=== PATIENT | male | born 1995 ===

== ENCOUNTER 2017-12-07 17:50 | Emergency (ER) | payer MEDICAID, OTHER ==
[~2017-12-07] VITALS: Ht 175.3 cm; Wt 95.0 kg
[2017-12-07 18:02] VITALS: BP 140/76; PULSE 132; RESP 17; TEMP 99.8; O2SAT 96
[2017-12-07] MEDS ORDERED: SODIUM CHLOR 0.9% 1000 ML INJ 1,000 ML IV SCH (19:19)
[2017-12-07] MEDS ORDERED: SODIUM CHLORIDE 0.9% FLUSH 10 ML FLUSH IV FLUSH PRN (19:30)
[2017-12-07] MEDS ORDERED: ONDANSETRON HCL 4 MG/2 ML VIAL IVP ONE (19:30)
--- NOTE | 2017-12-07 19:53 | PD ---
HPI Chief Complaint: GI Complaint Time Seen by Provider: 19:19 Travel History International Travel<30 days: No Contact w/Intl Traveler<30days: No Traveled to known affect area: No History of Present Illness HPI Patient is a 22-year-old male presenting to emerge from for evaluation of nausea , vomiting, diarrhea for the last 2 days. Patient reports yellow-green emesis. He reports that he has been unable to tolerate food. He has not vomited in several hours and feels that this has improved. He reports 8-10 episodes of loose, watery diarrhea daily, he has not had any bowel movement in several hours. He denies any bloody stools or mucus in his stools. He denies any bloody emesis. He further denies any fevers but reports feeling chilled and fatigued. He denies any contaminated foods but he reports that his son has been sick recently. Symptom onset was fairly sudden, symptoms are moderate in nature. There are no alleviating factors, symptoms are exacerbated with oral intake. PFSH Past Medical History Asthma: Yes Immunizations Current: Yes Tetanus Vaccination: > 5 Years Influenza Vaccination: Yes Past Surgical History Surgical History: No Previous Surgery Social History Alcohol Use: No Tobacco Use: No Substance Use: No Allergies-Medications (Allergen,Severity, Reaction): Coded Allergies: No Known Allergies (Unverified , 12/07/17) Reported Meds & Prescriptions Reported Meds & Active Scripts Active Zofran Odt (Ondansetron Odt) 4 Mg Tab 4 Mg SL Q6HR PRN Review of Systems Except as stated in HPI: all other systems reviewed are Neg General / Constitutional: Positive: Chills HENT: No: Headaches Cardiovascular: No: Chest Pain or Discomfort Respiratory: No: Shortness of Breath Gastrointestinal: Positive: Nausea, Vomiting, Diarrhea, Loss of Appetite, No: Abdominal Pain, Changes in Bowel Habits Genitourinary: No: Dysuria Musculoskeletal: No: Myalgias Neurologic: No: Weakness, Dizziness, Syncope Physical Exam Narrative GENERAL: Well-developed, well-nourished, alert male. Presenting in no acute distress. SKIN: Warm and dry. HEAD: Atraumatic. Normocephalic. EYES: Pupils equal and round. No scleral icterus. No injection or drainage. ENT: No nasal bleeding or discharge. Mucous membranes pink and moist. NECK: Trachea midline. No JVD. CARDIOVASCULAR: Tachycardic RESPIRATORY: No accessory muscle use. Clear to auscultation. Breath sounds equal bilaterally. GASTROINTESTINAL: Abdomen soft, non-tender, nondistended. Hepatic and splenic margins not palpable. No rebound, no guarding, positive bowel sounds. MUSCULOSKELETAL: Extremities without clubbing, cyanosis, or edema. No obvious deformities. NEUROLOGICAL: Awake and alert. No obvious cranial nerve deficits. Motor grossly within normal limits. Five out of 5 muscle strength in the arms and legs. Normal speech. PSYCHIATRIC: Appropriate mood and affect; insight and judgment normal. Data Data Last Documented VS Vital Signs Date Time Temp Pulse Resp B/P (MAP) Pulse Ox O2 Delivery O2 Flow Rate FiO2 12/07/17 18:02 99.8 132 17 140/76 (97) 96 Orders Orders Complete Blood Count With Diff (12/07/17 19:19) Comprehensive Metabolic Panel (12/07/17 19:19) Lipase (12/07/17 19:19) Urinalysis - C+S If Indicated (12/07/17 19:19) Iv Access Insert/Monitor (12/07/17 19:19) Ecg Monitoring (12/07/17 19:19) Oximetry (12/07/17 19:19) Ondansetron Inj (Zofran Inj) (12/07/17 19:30) Sodium Chlor 0.9% 1000 Ml Inj (Ns 1000 M (12/07/17 19:19) Sodium Chloride 0.9% Flush (Ns Flush) (12/07/17 19:30) Sodium Chlor 0.9% 1000 Ml Inj (Ns 1000 M (12/07/17 20:30) Labs Laboratory Tests Test 12/07/17 19:54 12/07/17 20:09 White Blood Count 9.0 TH/MM3 Red Blood Count 5.31 MIL/MM3 Hemoglobin 14.5 GM/DL Hematocrit 42.4 % Mean Corpuscular Volume 80.0 FL Mean Corpuscular Hemoglobin 27.2 PG Mean Corpuscular Hemoglobin Concent 34.1 % Red Cell Distribution Width 14.5 % Platelet Count 245 TH/MM3 Mean Platelet Volume 8.2 FL Neutrophils (%) (Auto) 83.9 % Lymphocytes (%) (Auto) 10.3 % Monocytes (%) (Auto) 5.7 % Eosinophils (%) (Auto) 0.0 % Basophils (%) (Auto) 0.1 % Neutrophils # (Auto) 7.6 TH/MM3 Lymphocytes # (Auto) 0.9 TH/MM3 Monocytes # (Auto) 0.5 TH/MM3 Eosinophils # (Auto) 0.0 TH/MM3 Basophils # (Auto) 0.0 TH/MM3 CBC Comment DIFF FINAL Differential Comment Blood Urea Nitrogen 15 MG/DL Creatinine 1.16 MG/DL Random Glucose 93 MG/DL Total Protein 8.4 GM/DL Albumin 4.3 GM/DL Calcium Level 9.0 MG/DL Alkaline Phosphatase 81 U/L Aspartate Amino Transf (AST/SGOT) 19 U/L Alanine Aminotransferase (ALT/SGPT) 30 U/L Total Bilirubin 0.8 MG/DL Sodium Level 140 MEQ/L Potassium Level 3.6 MEQ/L Chloride Level 103 MEQ/L Carbon Dioxide Level 28.4 MEQ/L Anion Gap 9 MEQ/L Estimat Glomerular Filtration Rate 79 ML/MIN Lipase 85 U/L Urine Color YELLOW Urine Turbidity CLEAR Urine pH 6.5 Urine Specific [place] 1.031 Urine Protein 30 mg/dL Urine Glucose (UA) NEG mg/dL Urine Ketones NEG mg/dL Urine Occult Blood NEG Urine Nitrite NEG Urine Bilirubin NEG Urine Urobilinogen 2.0 MG/DL Urine Leukocyte Esterase NEG Urine RBC 1 /hpf Urine WBC 1 /hpf Urine Squamous Epithelial Cells 1 /hpf Urine Mucus FEW /lpf Microscopic Urinalysis Comment CULT NOT INDICATED MDM Medical Decision Making Medical Screen Exam Complete: Yes Emergency Medical Condition: Yes Interpretation(s) Laboratory Tests Test 12/07/17 19:54 12/07/17 20:09 White Blood Count 9.0 TH/MM3 Red Blood Count 5.31 MIL/MM3 Hemoglobin 14.5 GM/DL Hematocrit 42.4 % Mean Corpuscular Volume 80.0 FL Mean Corpuscular Hemoglobin 27.2 PG Mean Corpuscular Hemoglobin Concent 34.1 % Red Cell Distribution Width 14.5 % Platelet Count 245 TH/MM3 Mean Platelet Volume 8.2 FL Neutrophils (%) (Auto) 83.9 % Lymphocytes (%) (Auto) 10.3 % Monocytes (%) (Auto) 5.7 % Eosinophils (%) (Auto) 0.0 % Basophils (%) (Auto) 0.1 % Neutrophils # (Auto) 7.6 TH/MM3 Lymphocytes # (Auto) 0.9 TH/MM3 Monocytes # (Auto) 0.5 TH/MM3 Eosinophils # (Auto) 0.0 TH/MM3 Basophils # (Auto) 0.0 TH/MM3 CBC Comment DIFF FINAL Differential Comment Blood Urea Nitrogen 15 MG/DL Creatinine 1.16 MG/DL Random Glucose 93 MG/DL Total Protein 8.4 GM/DL Albumin 4.3 GM/DL Calcium Level 9.0 MG/DL Alkaline Phosphatase 81 U/L Aspartate Amino Transf (AST/SGOT) 19 U/L Alanine Aminotransferase (ALT/SGPT) 30 U/L Total Bilirubin 0.8 MG/DL Sodium Level 140 MEQ/L Potassium Level 3.6 MEQ/L Chloride Level 103 MEQ/L Carbon Dioxide Level 28.4 MEQ/L Anion Gap 9 MEQ/L Estimat Glomerular Filtration Rate 79 ML/MIN Lipase 85 U/L Urine Color YELLOW Urine Turbidity CLEAR Urine pH 6.5 Urine Specific [place] 1.031 Urine Protein 30 mg/dL Urine Glucose (UA) NEG mg/dL Urine Ketones NEG mg/dL Urine Occult Blood NEG Urine Nitrite NEG Urine Bilirubin NEG Urine Urobilinogen 2.0 MG/DL Urine Leukocyte Esterase NEG Urine RBC 1 /hpf Urine WBC 1 /hpf Urine Squamous Epithelial Cells 1 /hpf Urine Mucus FEW /lpf Microscopic Urinalysis Comment CULT NOT INDICATED Vital Signs Date Time Temp Pulse Resp B/P (MAP) Pulse Ox O2 Delivery O2 Flow Rate FiO2 12/07/17 18:02 99.8 132 17 140/76 (97) 96 Differential Diagnosis Gastroenteritis versus pancreatitis versus cholecystitis versus metabolic abnormality versus obstruction versus other Narrative Course Patient is well-appearing 22-year-old male presenting to emerge from for evaluation of nausea, vomiting, diarrhea for the last 48 hours. Patient's symptoms appear to be resolving as he has not had any vomiting or diarrhea and several hours. He is tachycardic on arrival, likely secondary to dehydration. Labs ordered and pending. Abdominal exam is benign. Patient has a bag full of [employer] food in the room, he states he asked his to get him something to eat to see if he could eat. Patient was advised to avoid [employer] at this time. Labs reviewed, no acute findings identified. Patient has received a total of 2 L of IV fluids, heart rate reassessed, is currently 100. Patient reports feeling better. Oral fluid challenge ordered. Patient is tolerating oral fluids. He was advised to maintain a bland, easy to digest diet, increasing as tolerated. He was encouraged to follow-up with his primary doctor or return to emergency department for any new or worsening symptoms. Patient verbalized understanding of instructions. Patient stable for discharge. Diagnosis Primary Impression: Gastroenteritis Referrals: [facility] Primary Care Physician Patient Instructions: Acute Nausea and Vomiting (DC), Gastroenteritis (ED), General Instructions Additional Instructions: Follow-up with your primary doctor or at the [facility] clinic Maintain a bland, easy to digest diet, increasing as tolerated Avoid spicy, fried, fatty foods, acidic foods Take medications as needed as directed for nausea Return to emergency department immediately for any new or worsening symptoms Med/Other Pt SpecificInfo: Prescription(s) given Scripts Ondansetron Odt (Zofran Odt) 4 Mg Tab 4 MG SL Q6HR Y for Nausea/Vomiting, #10 TAB 0 Refills Prov: Donya Velazquez 12/07/17 Disposition: 01 DISCHARGE HOME Condition: Stable Donya Velazquez December 07, 2017 19:53
[2017-12-07 20:17] LABS: AUTOMATED NEUTROPHIL # 7.6 TH/MM3 (1.8-7.7); BASOPHIL % 0.1 % (0.0-2.0); HEMATOCRIT 42.4 % (39.0-51.0); HEMOGLOBIN 14.5 GM/DL (13.0-17.0); LYMPH % 10.3 % (9.0-44.0); LYMPHOCYTE # 0.9 TH/MM3 (1.0-4.8); MEAN CORPUSCULAR HEMOGLOBIN 27.2 PG (27.0-34.0); MEAN CORPUSCULAR HGB CONC 34.1 % (32.0-36.0); MEAN PLATELET VOLUME 8.2 FL (7.0-11.0); MONO % 5.7 % (0.0-8.0); MONOCYTE # 0.5 TH/MM3 (0-0.9); NEUT % 83.9 % (16.0-70.0); PLATELET COUNT 245 TH/MM3 (150-450); RED BLOOD COUNT 5.31 MIL/MM3 (4.50-5.90); RED CELL DISTRIBUTION WIDTH 14.5 % (11.6-17.2)
[2017-12-07 20:25] LABS: BILIRUBIN, URINE NEG (NEG); BLOOD, URINE NEG (NEG); GLUCOSE,URINE NEG (NEG); KETONE, URINE NEG (NEG); MUCUS URINE FEW /lpf (OCC); NITRITE,URINE NEG (NEG); PH, URINE 6.5 (5.0-8.5); SQUAMOUS EPITHELIAL CELL URINE 1 /hpf (0-5); URINE COLOR YELLOW (YELLW/STRAW); URINE LEUKOCYTE ESTERASE NEG (NEG)
[2017-12-07] MEDS ORDERED: SODIUM CHLOR 0.9% 1000 ML INJ 1,000 ML IV ONE (20:30)
[2017-12-07 20:35] LABS: ALBUMIN 4.3 GM/DL (3.4-5.0); ALT (GPT) 30 U/L (12-78); AST (GOT) 19 U/L (15-37); BICARBONATE 28.4 MEQ/L (21.0-32.0); BLOOD UREA NITROGEN 15 MG/DL (7-18); CHLORIDE 103 MEQ/L (98-107); CREATININE 1.16 MG/DL (0.60-1.30); GLOMERULAR FILTRATION RATE 79 ML/MIN (>89); GLUCOSE,RANDOM 93 MG/DL (74-106); SODIUM (NA) 140 MEQ/L (136-145)
[2017-12-07 20:38] LABS: ALKALINE PHOSPHATASE 81 U/L (45-117); TOTAL BILIRUBIN ADULT 0.8 MG/DL (0.2-1.0); TOTAL PROTEIN 8.4 GM/DL (6.4-8.2)
[2017-12-07] MEDS ORDERED: ZOFR4TAB3 SL (20:56)
== END 2017-12-07 21:44 | disposition home or self-care (01) ==
LOC: NEPD 17:50
DX: K52.9 Noninfective gastroenteritis and colitis, unspecified (principal); R19.7 Diarrhea, unspecified; J45.909 Unspecified asthma, uncomplicated
CPT/HCPCS: 80053; 81001; 83690; 85025; 96361; 96374; 99284; J2405; J7030

== ENCOUNTER 2017-12-31 13:14 | Emergency (ER) | payer MEDICAID ==
[~2017-12-31] VITALS: Ht 175.3 cm; Wt 95.5 kg
[~2017-12-31 13:14] MED LIST: ZOFR4TAB3 SL
[2017-12-31 13:34] VITALS: BP 149/103; PULSE 78; RESP 16; TEMP 98.7; O2SAT 99
--- NOTE | 2017-12-31 14:19 | RADRPT ---
EXAM DATE: 12/31/2017 2:04 PM EDT AGE/SEX: 22 years / Male INDICATIONS: LT sided chest pain. CLINICAL DATA: This is the patient's initial encounter. Patient reports that signs and symptoms have been present for 1 day and indicates a pain score of 3/10. MEDICAL/SURGICAL HISTORY: Asthma. None. COMPARISON: No prior [facility] exams available for comparison. FINDINGS: PA and lateral views of the chest demonstrate the lungs to be symmetrically aerated without evidence of mass, infiltrate or effusion. The cardiomediastinal contours are unremarkable. Osseous structures are intact. CONCLUSION: No acute cardiopulmonary disease. Electronically signed by: Tenzin Muñoz MD 12/31/2017 2:17 PM EDT
--- NOTE | 2017-12-31 16:08 | PD ---
HPI Chief Complaint: Chest Pain Time Seen by Provider: 15:51 Travel History International Travel<30 days: No Contact w/Intl Traveler<30days: No Traveled to known affect area: No History of Present Illness HPI 22-year-old male with no significant past medical history, presents today with complaints of chest pain. Patient states he has had an on and off several times. He reports it as like being punched in the chest with a fist. He states it radiates to his stomach. There is no associated shortness of breath. There is no associated nausea. There is no associated diaphoresis. Patient states that he was seen about a year ago for similar things and told everything was okay. He reports that at that time he had elevated blood pressure and was told to follow it. Patient does report going through a lot of stress at work. There are no other complaints at the time of my examination. PFSH Past Medical History Asthma: Yes Immunizations Current: Yes Social History Alcohol Use: No Tobacco Use: No Substance Use: No Allergies-Medications (Allergen,Severity, Reaction): Coded Allergies: No Known Allergies (Unverified , 12/31/17) Reported Meds & Prescriptions Reported Meds & Active Scripts Active Vistaril (Hydroxyzine Pamoate) 25 Mg Cap 25 Mg PO TID PRN Zofran Odt (Ondansetron Odt) 4 Mg Tab 4 Mg SL Q6HR PRN Review of Systems Except as stated in HPI: all other systems reviewed are Neg HENT: No: Headaches, Neck Pain Cardiovascular: Positive: Chest Pain or Discomfort, Palpitations, No: Irregular Rhythm (Occasional) Respiratory: No: Cough, Shortness of Breath Gastrointestinal: No: Nausea, Vomiting, Abdominal Pain Musculoskeletal: No: Myalgias, Pain Neurologic: No: Weakness, Dizziness, Headache Psychiatric: No: Anxiety Physical Exam Narrative GENERAL: Well-developed well-nourished male in no acute respiratory distress SKIN: Focused skin assessment warm/dry. HEAD: Atraumatic. Normocephalic. EYES: Pupils equal and round. No scleral icterus. No injection or drainage. ENT: No nasal bleeding or discharge. Mucous membranes pink and moist. NECK: Trachea midline. Supple. CARDIOVASCULAR: Regular rate and rhythm. No murmur appreciated. RESPIRATORY: No accessory muscle use. Clear to auscultation. Breath sounds equal bilaterally. GASTROINTESTINAL: Abdomen soft, non-tender, nondistended. Hepatic and splenic margins not palpable. MUSCULOSKELETAL: No obvious deformities. No clubbing. No cyanosis. No edema. NEUROLOGICAL: Awake and alert. No obvious cranial nerve deficits. Motor grossly within normal limits. Normal speech. PSYCHIATRIC: Appropriate mood and affect; insight and judgment normal. Data Data Last Documented VS Vital Signs Date Time Temp Pulse Resp B/P (MAP) Pulse Ox O2 Delivery O2 Flow Rate FiO2 12/31/17 16:27 97.8 100 16 126/74 (91) 99 12/31/17 16:27 Room Air Orders Orders Electrocardiogram (12/31/17 13:37) Complete Blood Count With Diff (12/31/17 13:37) Ckmb (Isoenzyme) Profile (12/31/17 13:37) Troponin I (12/31/17 13:37) Iv Access Insert/Monitor (12/31/17 13:37) Ecg Monitoring (12/31/17 13:37) Oxygen Administration (12/31/17 13:37) Oximetry (12/31/17 13:37) Prothrombin Time / Inr (Pt) (12/31/17 13:37) Comprehensive Metabolic Panel (12/31/17 13:37) Chest, Pa & Lat (12/31/17 13:37) CKMB (12/31/17 16:25) CKMB% (12/31/17 16:25) Labs Laboratory Tests Test 12/31/17 16:25 White Blood Count 9.6 TH/MM3 Red Blood Count 5.01 MIL/MM3 Hemoglobin 13.4 GM/DL Hematocrit 40.3 % Mean Corpuscular Volume 80.5 FL Mean Corpuscular Hemoglobin 26.8 PG Mean Corpuscular Hemoglobin Concent 33.3 % Red Cell Distribution Width 14.2 % Platelet Count 248 TH/MM3 Mean Platelet Volume 8.2 FL Neutrophils (%) (Auto) 70.3 % Lymphocytes (%) (Auto) 21.4 % Monocytes (%) (Auto) 3.9 % Eosinophils (%) (Auto) 4.2 % Basophils (%) (Auto) 0.2 % Neutrophils # (Auto) 6.8 TH/MM3 Lymphocytes # (Auto) 2.1 TH/MM3 Monocytes # (Auto) 0.4 TH/MM3 Eosinophils # (Auto) 0.4 TH/MM3 Basophils # (Auto) 0.0 TH/MM3 CBC Comment DIFF FINAL Differential Comment Prothrombin Time 10.6 SEC Prothromb Time International Ratio 1.0 RATIO Blood Urea Nitrogen 14 MG/DL Creatinine 1.10 MG/DL Random Glucose 117 MG/DL Total Protein 8.2 GM/DL Albumin 4.2 GM/DL Calcium Level 9.1 MG/DL Alkaline Phosphatase 83 U/L Aspartate Amino Transf (AST/SGOT) 21 U/L Alanine Aminotransferase (ALT/SGPT) 37 U/L Total Bilirubin 0.5 MG/DL Sodium Level 139 MEQ/L Potassium Level 3.8 MEQ/L Chloride Level 102 MEQ/L Carbon Dioxide Level 27.3 MEQ/L Anion Gap 10 MEQ/L Estimat Glomerular Filtration Rate 84 ML/MIN Total Creatine Kinase 171 U/L Creatine Kinase MB 0.6 NG/ML Troponin I LESS THAN 0.02 NG/ML MDM Medical Decision Making Medical Screen Exam Complete: Yes Emergency Medical Condition: Yes Differential Diagnosis Stress-induced anxiety, GERD, ACS, muscular skeletal pain Narrative Course 22-year-old male presents today with complaints of chest pain. Patient reports it as a sensation of being punched in the chest with radiation down to his abdominal area. The patient denies any shortness of breath, nausea, diaphoresis. Patient's EKG and cardiac enzymes are within normal limits. Patient does give history that he is going through a lot of stress at work. He also has 3 young children in the house. He has a very supportive . I informed him that I believe a lot of his symptoms are secondary to his stress and anxiety. I have recommended that he go for long walks with his family. He will be given a prescription for Vistaril told to take 2-3 times daily as needed for stress/anxiety. He is instructed to follow-up with [facility] if the symptoms continue. Diagnosis Primary Impression: Atypical chest pain Additional Impression: Acute life stressors Referrals: [facility] (Out patient) Additional Instructions: Try and exercise daily. Avoid stressful situations. If symptoms persist follow -up with outpatient [facility] Med/Other Pt SpecificInfo: Prescription(s) given Scripts Hydroxyzine Pamoate (Vistaril) 25 Mg Cap 25 MG PO TID Y for ANXIETY, #30 CAP 0 Refills Prov: Darwin Hernandez MD 12/31/17 Disposition: 01 DISCHARGE HOME Condition: Stable Darwin Hernandez MD December 31, 2017 16:08
[2017-12-31 16:25] VITALS: RESP 16; O2SAT 96
[2017-12-31 16:27] VITALS: BP 126/74; PULSE 100; PULSE 102; RESP 16; TEMP 97.8; O2SAT 99
[2017-12-31 16:58] LABS: AUTOMATED NEUTROPHIL # 6.8 TH/MM3 (1.8-7.7); BASOPHIL % 0.2 % (0.0-2.0); EOSINOPHIL # 0.4 TH/MM3 (0-0.4); EOSINOPHIL % 4.2 % (0.0-4.0); HEMATOCRIT 40.3 % (39.0-51.0); HEMOGLOBIN 13.4 GM/DL (13.0-17.0); LYMPH % 21.4 % (9.0-44.0); LYMPHOCYTE # 2.1 TH/MM3 (1.0-4.8); MEAN CELL VOLUME 80.5 FL (80.0-100.0); MEAN CORPUSCULAR HEMOGLOBIN 26.8 PG (27.0-34.0); MEAN CORPUSCULAR HGB CONC 33.3 % (32.0-36.0); MEAN PLATELET VOLUME 8.2 FL (7.0-11.0); MONO % 3.9 % (0.0-8.0); MONOCYTE # 0.4 TH/MM3 (0-0.9); NEUT % 70.3 % (16.0-70.0); PLATELET COUNT 248 TH/MM3 (150-450); RED BLOOD COUNT 5.01 MIL/MM3 (4.50-5.90); RED CELL DISTRIBUTION WIDTH 14.2 % (11.6-17.2); WHITE BLOOD COUNT 9.6 TH/MM3 (4.0-11.0)
[2017-12-31 17:03] LABS: PROTHROMBIN TIME - PATIENT 10.6 SEC (9.8-11.6)
[2017-12-31 17:16] LABS: ALBUMIN 4.2 GM/DL (3.4-5.0); AST (GOT) 21 U/L (15-37); BICARBONATE 27.3 MEQ/L (21.0-32.0); BLOOD UREA NITROGEN 14 MG/DL (7-18); CALCIUM 9.1 MG/DL (8.5-10.1); CHLORIDE 102 MEQ/L (98-107); GLOMERULAR FILTRATION RATE 84 ML/MIN (>89); GLUCOSE,RANDOM 117 MG/DL (74-106); SODIUM (NA) 139 MEQ/L (136-145)
[2017-12-31 17:17] LABS: ALT (GPT) 37 U/L (12-78)
[2017-12-31 17:20] LABS: ALKALINE PHOSPHATASE 83 U/L (45-117); TOTAL BILIRUBIN ADULT 0.5 MG/DL (0.2-1.0); TOTAL PROTEIN 8.2 GM/DL (6.4-8.2); TROPONIN I LESS THAN 0.02 NG/ML (0.02-0.05)
[2017-12-31] MEDS ORDERED: VIST25CA PO (18:10)
[2017-12-31 18:30] VITALS: BP 133/78; TEMP 97.8
--- NOTE | 2018-01-01 14:56 | EKG ---
Date Performed: 12/31/2017 Time Performed: 14:20:14 PTAGE: 22 years EKG: Sinus rhythm MODERATE VOLTAGE CRITERIA FOR LVH, CONSIDER NORMAL VARIANT BORDERLINE ECG NO PREVIOUS TRACING DOCTOR: Evert Sanabria Interpretating Date/Time 01/01/2018 14:53:12
== END 2017-12-31 18:45 | disposition home or self-care (01) ==
LOC: NEPC 13:14
DX: R07.89 Other chest pain (principal)
CPT/HCPCS: 71046; 80053; 82550; 82552; 84484; 85025; 85610; 93005